=== PATIENT | female | born 1965 | race Caucasian/White ===

== ENCOUNTER 2020-10-06 09:10 | Outpatient (REF) | payer BC, SELFPAY ==
--- NOTE | 2020-10-06 09:15 | MM_ITS ---
EXAMINATION: MM SCREENING DIGITAL BREAST TOMOSYNTHESIS, BILATERAL CLINICAL INFORMATION: Screening. Asymptomatic. The lifetime risk of breast cancer based on the Tyrer-Cuzick Model is 7%. COMPARISON: Mammography: 06/26/2018, 06/14/2016 TECHNIQUE: Digital breast tomosynthesis is performed in both the craniocaudal and mediolateral oblique views along with computer-aided detection (CAD). Synthesized 2D images are generated from the tomosynthesis. FINDINGS: There are scattered areas of fibroglandular density (ACR BI-RADS breast composition Category b). There are no significant masses, abnormal calcifications, or other abnormalities. Axillary nodes are stable. The skin contours are smooth. MM/MM tomosynthesis screening BI IMPRESSION: No significant changes from prior exams. ASSESSMENT: BI-RADS 1: Negative RECOMMENDATION: Routine annual mammography screening. This patient's information was entered into a reminder system with a target due date for their next mammogram.
== END 2020-10-06 09:11 | disposition home or self-care (01) ==
LOC: HO.MAMMO 09:10
PROVIDERS: PCP Internal Medicine; Visit Provider Internal Medicine
DX: Z12.31 Encounter for screening mammogram for malignant neoplasm of breast (principal)
CPT/HCPCS: 77063; 77067

== ENCOUNTER 2022-10-22 07:29 | Outpatient (REF) | payer OTHER, SELFPAY ==
[2022-10-22 11:18] LABS: MANUAL DIFF FLAG NO
[2022-10-22 11:31] LABS: Basophils Percent Auto 0.5 % (0-2); Eosinophils Absolute Auto 0.3 X10*3/uL (0.0-0.4); Eosinophils Percent Auto 3.4 % (0-4); Hematocrit 43.5 % (37.0-47.0); Hemoglobin 14.8 g/dl (12.0-16.0); Imm Gran Abs Auto 0.02 X10*3/uL (0.00-0.03); Imm Gran Pct Auto 0.3 % (0.0-0.4); Lymphocytes Absolute Auto 2.3 X10*3/uL (1.2-4.9); Lymphocytes Percent Auto 29.2 % (20-40); Mean Corpuscular Hemoglobin 29.7 pg (27.0-33.0); Mean Corpuscular Volume 87.3 fL (80.0-98.0); Mean Platelet Volume 9.9 fL (9.4-12.3); Monocytes Absolute Auto 0.6 X10*3/uL (0.1-1.2); Monocytes Percent Auto 7.9 % (2-11); Neutrophils Absolute Auto 4.7 x10*3/uL (2.0-8.3); Neutrophils Percent Auto 58.7 % (45-73); Platelet Count 326 X10*3/uL (160-400); Red Blood Count 4.98 X10*6/uL (4.20-5.50); Red Cell Distribution Width 13.4 % (11.0-16.0)
[2022-10-22 12:17] LABS: Alanine Aminotransferase 56 U/L (0-31); Albumin Level 4.2 g/dL (3.5-5.0); Anion Gap 17 (12-20); Aspartate Amino Transferase 28 U/L (5-31); Bilirubin Total 0.6 mg/dL (0.0-1.0); Blood Urea Nitrogen 14 mg/dL (9-16); Calcium 9.2 mg/dL (8.4-10.2); Carbon Dioxide 22 mmol/L (22-29); Chloride 107 mmol/L (96-108); Cholesterol 229 mg/dL; Estimated Glomerular Filt Rate > 60; Glucose Fasting 104 mg/dL (60-99); HDL Cholesterol 41 mg/dL; LDL Cholesterol Calculated 160 mg/dl; Potassium 4.3 mmol/L (3.3-5.1); Sodium 142 mmol/L (135-145); TSH reflex Free T4 1.31 uIU/mL (0.32-4.0); Total Protein 6.9 g/dL (6.5-8.0); Triglycerides 142 mg/dL; Vitamin D 25-OH Total 20.7 ng/mL (>30)
[2022-10-22 12:31] LABS: Alkaline Phosphatase 87 U/L (39-117)
[2022-10-22 12:33] LABS: Folate 7.9 ng/mL (> or = 4.0); Vitamin B12 1350 pg/mL (200-900)
== END 2022-10-22 07:30 | disposition home or self-care (01) ==
LOC: HO.HMGCLDS 07:29
PROVIDERS: PCP Internal Medicine; Visit Provider Internal Medicine
DX: F41.9 Anxiety disorder, unspecified (principal); E78.5 Hyperlipidemia, unspecified
CPT/HCPCS: 36415; 80053; 80061; 82306; 82607; 82746; 84443; 85025

== ENCOUNTER 2022-11-10 08:22 | Outpatient (REF) | payer OTHER, SELFPAY ==
--- NOTE | ~2022-11-10 | US_ITS ---
EXAMINATION: US ABDOMEN COMPLETE CLINICAL INFORMATION: Other specified abnormal findings of blood chemistry. COMPARISON: CT abdomen and pelvis with contrast 05/10/2015. TECHNIQUE: Real-time imaging of the abdominal viscera. FINDINGS: PANCREAS: Normal. ABDOMINAL AORTA: The proximal, mid, and distal segments are normal in caliber. INFERIOR VENA CAVA: Visualized portions are normal. LIVER: The liver is normal in size. The liver contour is normal. There is diffuse increased liver parenchymal echogenicity, consistent with hepatic steatosis. No focal hepatic lesion. There is no intrahepatic biliary duct dilatation seen. GALLBLADDER: Cholelithiasis without evidence of acute cholecystitis. COMMON BILE DUCT: Normal in caliber measuring 0.3 cm in diameter. RIGHT KIDNEY: Normal. No hydronephrosis. No renal calculi or focal parenchymal lesions. The kidney measures 10.8 cm in maximum dimension. LEFT KIDNEY: Normal. No hydronephrosis. No renal calculi or focal parenchymal lesions. The kidney measures 11.4 cm in maximum dimension. SPLEEN: Normal. The spleen measures 9.0 cm in maximum dimension. FREE FLUID: None. US/US abdomen complete IMPRESSION: Fatty liver. Cholelithiasis.
== END 2022-11-10 08:23 | disposition home or self-care (01) ==
LOC: HO.HMGCX 08:22
PROVIDERS: PCP Internal Medicine; Visit Provider Internal Medicine
DX: R79.89 Other specified abnormal findings of blood chemistry (principal)
CPT/HCPCS: 76700

== ENCOUNTER 2022-11-17 13:08 | Outpatient (REF) | payer OTHER, SELFPAY ==
--- NOTE | ~2022-11-17 | MM_ITS ---
EXAMINATION: MM SCREENING DIGITAL BREAST TOMOSYNTHESIS, BILATERAL CLINICAL INFORMATION: Screening. Asymptomatic. The lifetime risk of breast cancer based on the Tyrer-Cuzick Model is 7%. COMPARISON: Mammography: 10/06/2020, 06/26/2018, 06/14/2016 TECHNIQUE: Digital breast tomosynthesis is performed in both the craniocaudal and mediolateral oblique views along with computer-aided detection (CAD). Synthesized 2D images are generated from the tomosynthesis. FINDINGS: There are scattered areas of fibroglandular density (ACR BI-RADS breast composition Category b). There are no significant masses, abnormal calcifications, or other abnormalities. Parenchymal pattern is similar to prior studies. There is no developing density or architectural abnormality. The axilla and skin contours are unremarkable. No significant changes. MM/MM tomosynthesis screening BI IMPRESSION: No mammographic evidence of malignancy. ASSESSMENT: BI-RADS 1: Negative RECOMMENDATION: Routine annual mammography screening. This patient's information was entered into a reminder system with a target due date for their next mammogram.
== END 2022-11-17 13:09 | disposition home or self-care (01) ==
LOC: HO.MAMMO 13:08
PROVIDERS: PCP Internal Medicine; Visit Provider Internal Medicine
DX: Z12.31 Encounter for screening mammogram for malignant neoplasm of breast (principal)
CPT/HCPCS: 77063; 77067

== ENCOUNTER 2022-12-11 09:25 | Outpatient (REF) | payer OTHER, SELFPAY ==
[2022-12-11 11:51] LABS: Alanine Aminotransferase 36 U/L (0-31); Albumin Level 4.3 g/dL (3.5-5.0); Alkaline Phosphatase 79 U/L (39-117); Anion Gap 14 (12-20); Aspartate Amino Transferase 20 U/L (5-31); Bilirubin Total 0.5 mg/dL (0.0-1.0); Blood Urea Nitrogen 13 mg/dL (9-16); Calcium 8.9 mg/dL (8.4-10.2); Carbon Dioxide 23 mmol/L (22-29); Chloride 109 mmol/L (96-108); Cholesterol 174 mg/dL; Estimated Glomerular Filt Rate > 60; Glucose Fasting 104 mg/dL (60-99); HDL Cholesterol 53 mg/dL; LDL Cholesterol Calculated 104 mg/dl; Potassium 4.4 mmol/L (3.3-5.1); Sodium 142 mmol/L (135-145); Total Protein 6.8 g/dL (6.5-8.0); Triglycerides 89 mg/dL
[2022-12-11 12:24] LABS: TSH reflex Free T4 1.06 uIU/mL (0.32-4.0); Vitamin D 25-OH Total 44.6 ng/mL (>30)
[2022-12-12 08:18] LABS: HBS Num1 0.33 mIU/mL (0-7.99); HBc Num1 0.09 S/CO (0.00-0.79); HBsAGNum1 0.35 S/CO (0.00-0.99); Hepatitis B Core Antibody Nonreactive (Nonreactive); Hepatitis B Surface Antigen Negative (Negative); ~HepC Num1 0.11 S/CO (0.00-0.79); ~Hepatitis B Surface Antibody NONREACTIVE (Nonreactive); ~Hepatitis C Antibody Nonreactive (Nonreactive)
== END 2022-12-11 09:26 | disposition home or self-care (01) ==
LOC: HO.HMGCLDS 09:25
PROVIDERS: PCP Internal Medicine; Visit Provider Internal Medicine
DX: E78.5 Hyperlipidemia, unspecified (principal); F41.9 Anxiety disorder, unspecified; E55.9 Vitamin D deficiency, unspecified; R79.89 Other specified abnormal findings of blood chemistry
CPT/HCPCS: 36415; 80053; 80061; 82306; 84443; 86704; 86706; 86803; 87340

== ENCOUNTER 2023-07-24 11:35 | Outpatient (AMB) | payer OTHER, SELFPAY ==
[2023-07-24 11:42] VITALS: BP 124/68; PULSE 90; O2SAT 95
--- NOTE | 2023-07-24 11:42 | A.OFFPC_ITS ---
Vital Signs 07/24/23 11:42 Height 5 ft BMI Reason not done Patient refused/unable BP 124/68 Blood Pressure Location Lt brachial Position Sitting Pulse 90 Pulse Source Pulse Oximeter Pulse Oximetry (%) 95 Oxygen Delivery Method Room Air Intake Visit Reasons: Cough, Wheezing Intake Note: Pt is here today for a sick visit. Pt c/o wheezing and cough since Thursday. Allergies Sulfa (Sulfonamide Antibiotics) [SULFA (SULFONAMIDE ANTIBIOTICS)] Allergy (Unknown, Verified 07/24/23 11:45) HIVES sulfamethoxazole [From BACTRIM] Allergy (Unknown, Verified 07/24/23 11:45) HIVES trimethoprim [From BACTRIM] Allergy (Unknown, Verified 07/24/23 11:45) HIVES sulfa Allergy (Unknown, Uncoded 07/24/23 11:45) rash Medication List - Last Reconciled 07/24/23 by Vane Quick MD albuterol sulfate 90 mcg/actuation 2 puffs inhalation Q6H PRN buspirone 15 mg (3 x 5 mg) PO BID doxycycline hyclate 100 mg PO BID escitalopram oxalate 30 mg (1.5 x 20 mg) PO DAILY lorazepam 0.5 mg PO DAILY PRN prednisone 40 mg (2 x 20 mg) PO DAILY rosuvastatin 20 mg PO DAILY Tobacco use date assessed: 07/24/23 Dental Screening Dental Screen Date: 07/24/23 Did you have a dental visit in the last 12 months?: Yes Did you have a dental problem in the last 6 months where you did not have access to dental care?: No Was dental information given to patient?: Patient has dentist HPI Cough, Wheezing HPI Details Pt presents c/o productive cough, wheezing, sinus congestion postnasal drip low-grade fever for 1 week. Patient denies shortness of breath or pleurisy PFSH Medical History Annual physical exam Anxiety Hx of screening mammography Hyperlipemia Normal pelvic exam Surgical History Hx of colonoscopy Social History Housing: House Patient Tobacco Use Status: Never used Tobacco e-Cigarette/Vaping Use: Never Used Second Hand Smoke Exposure: No service: No Current occupational status: employed Current occupation: [employer] Current occupational exposures/hazards: No Cognitive needs: No Hearing needs: No Vision needs: Yes Questionnaire Thrive Questionnaire Date Thrive assessed: 10/21/22 KEVIN-7 AMB Questionnaire KEVIN-7 Date KEVIN - 7 assessed: 10/21/22 Source: Developed by Drs. Candelario Willett, Krys Castrejon, Cruz Yancey and colleagues, with an educational lauren from [employer]. Review of Systems Const All systems reviewed & are unremarkable except as noted in HPI and below Reports no additional complaints Eyes Reports no additional complaints ENT Reports no additional complaints Card Reports no additional complaints Resp Reports no additional complaints GI Reports no additional complaints Reports no additional complaints Physical exam (Primary Care) Vital Signs: Last Vital Signs Pulse 90 07/24/23 11:42 BP 124/68 07/24/23 11:42 Pulse Ox 95 07/24/23 11:42 Oxygen Delivery Method Room Air 07/24/23 11:42 Tobacco/Smoking Status: Tobacco use Status Tobacco use date assessed 07/24/23 07/24/23 11:47 Patient Tobacco Use Status Never used Tobacco 07/24/23 11:47 e-Cigarette/Vaping Use Never Used 07/24/23 11:47 Thrive Assessment: Date of Thrive Assessment Date Thrive assessed 10/21/22 07/24/23 11:47 Const General: no acute distress HENMT Face and sinus: Yes sinus tenderness Throat: Yes posterior oropharynx abnormal and Yes postnasal drainage Neck Neck: Yes no lymphadenopathy and Yes supple Resp Effort & Inspection: normal respiratory effort Auscultation: wheezes Cardio Rhythm: regular rhythm Heart sounds: S1 normal heart sound present and S2 normal heart sound present Assessment and Plan Assessment & Plan (1) URI (upper respiratory infection): Code(s): J06.9 - Acute upper respiratory infection, unspecified Plan: SINUSITIS AND BRONCHITIS DOXYCYCLINE FOR 7 DAYS, PREDNISONE 40 MG FOR 3 DAYS AND ALBUTEROL NEEDED UP PRESCRIBED AND SUPPORTIVE CARE DISCUSSED WITH THE PATIENT Medications: New albuterol sulfate 90 mcg/actuation 2 puffs inhalation Q6H PRN 6.7 grams 0RF shortness of breath or wheezing doxycycline hyclate 100 mg PO BID 14 tabs 0RF prednisone 40 mg (2 x 20 mg) PO DAILY 6 tabs 0RF Coding Level of Care Code Est Pt Level 3 (75069) Diagnoses URI (upper respiratory infection) J06.9
== END 2023-07-24 12:17 | disposition home or self-care (01) ==
PROVIDERS: PCP Internal Medicine; Visit Provider Internal Medicine
DX: J06.9 Acute upper respiratory infection, unspecified (principal)
CPT/HCPCS: 99213

== ENCOUNTER 2023-08-24 07:47 | Outpatient (AMB) | payer OTHER, SELFPAY ==
--- NOTE | 2023-08-24 08:13 | MHC.PC.OV ---
Vital Signs 08/24/23 08:14 Height 5 ft BMI Reason not done Patient refused/unable BP 110/68 Blood Pressure Location Rt brachial Position Sitting Pulse 87 Pulse Source Pulse Oximeter Pulse Oximetry (%) 95 Oxygen Delivery Method Room Air Intake Visit Reasons: 6m follow up Intake Note: Pt is here today for 6 months follow up visit. Allergies Sulfa (Sulfonamide Antibiotics) [SULFA (SULFONAMIDE ANTIBIOTICS)] Allergy (Unknown, Verified 08/24/23 08:15) HIVES sulfamethoxazole [From BACTRIM] Allergy (Unknown, Verified 08/24/23 08:15) HIVES trimethoprim [From BACTRIM] Allergy (Unknown, Verified 08/24/23 08:15) HIVES sulfa Allergy (Unknown, Uncoded 08/24/23 08:15) rash Medication List - Last Reconciled 08/24/23 by Vane Quick MD albuterol sulfate 90 mcg/actuation 2 puffs inhalation Q6H PRN buspirone 15 mg PO BID escitalopram oxalate 30 mg (1.5 x 20 mg) PO DAILY lorazepam 0.5 mg PO DAILY PRN rosuvastatin 20 mg PO DAILY Tobacco use date assessed: 08/24/23 HPI 6m follow up HPI Details Pt presents for f/u anxiety and hyperlipid, stable on meds. PFSH Medical History Normal pelvic exam Hx of screening mammography Annual physical exam Hyperlipemia Anxiety Surgical History Hx of colonoscopy Housing: House Patient Tobacco Use Status: Never used Tobacco e-Cigarette/Vaping Use: Never Used Second Hand Smoke Exposure: No service: No Current occupational status: employed Current occupation: [employer] Current occupational exposures/hazards: No Cognitive needs: No Hearing needs: No Vision needs: Yes Questionnaire Thrive Questionnaire Date Thrive assessed: 10/21/22 KEVIN-7 AMB Questionnaire KEVIN-7 Date KEVIN - 7 assessed: 10/21/22 Source: Developed by Drs. Candelario Willett, Krys Castrejon, Cruz Yancey and colleagues, with an educational lauren from [employer]. Review of Systems Const All systems reviewed & are unremarkable except as noted in HPI and below Reports no additional complaints Eyes Reports no additional complaints ENT Reports no additional complaints Card Reports no additional complaints Resp Reports no additional complaints GI Reports no additional complaints Reports no additional complaints Physical exam (Primary Care) Vital Signs: Last Vital Signs Pulse 87 08/24/23 08:14 BP 110/68 08/24/23 08:14 Pulse Ox 95 08/24/23 08:14 Oxygen Delivery Method Room Air 08/24/23 08:14 Tobacco/Smoking Status: Tobacco use Status Tobacco use date assessed 08/24/23 08/24/23 08:18 Patient Tobacco Use Status Never used Tobacco 08/24/23 08:15 e-Cigarette/Vaping Use Never Used 08/24/23 08:15 Thrive Assessment: Date of Thrive Assessment Date Thrive assessed 10/21/22 08/24/23 08:15 Const General: no acute distress HENMT Face and sinus: Yes normal facial exam Throat: Yes posterior oropharynx normal Eyes General: appearance normal, both eyes and all related structures Neck Neck: Yes no lymphadenopathy and Yes supple Resp Effort & Inspection: normal respiratory effort Auscultation: clear to auscultation bilaterally Cardio Rhythm: regular rhythm Heart sounds: S1 normal heart sound present and S2 normal heart sound present GI Inspection: Yes normal to inspection Palpation (GI): Soft to palpation Percussion: Yes normal to percussion Auscultation: normal bowel sounds Office Procedures Flu Questionnaire Does the patient have a severe egg allergy?: No Does the patient have severe life threatening allergies?: No Does the patient have a fever or illness today?: No Has the patient ever had Guillain-P[place]mouth Syndrome?: No Has the patient ever had any past reaction to a flu shot?: No Immunizations flu vacc [id number] 6mos up(PF) 60 mcg(15 mcgx4)/0.5 mL IM syringe Performing Provider: Vane Quick MD Performing Location: [facility] Administered by: JULIANA Brody on 08/24/23 08:57 Dose Route Admin Location Dispensed Lot Number Expiration Date NDC Coding Manager 0.5 mL IM Right Deltoid 0.5 mL [id number] 03/27/24 [id number] [employer] [place] VIS Given Date VIS Provided VIS Publication Date 08/24/23 Single Vaccine 21 Eligibility Eligibility Date Funding Source Not [facility] Eligible 08/24/23 Private Assessment and Plan Assessment & Plan (1) Anxiety: Code(s): F41.9 - Anxiety disorder, unspecified Plan: cont meds (2) Hyperlipemia: Code(s): E78.5 - Hyperlipidemia, unspecified Plan: cont statin, PE in 6 months (3) Elevated LFTs: Comment: Fatty liver on CT of the abdomen 2015, US fatty liver cholelithiasis without cholecystitis 11/20 Code(s): R79.89 - Other specified abnormal findings of blood chemistry (4) Vitamin D deficiency: Code(s): E55.9 - Vitamin D deficiency, unspecified (5) Annual physical exam: Code(s): Z00.00 - Encounter for general adult medical examination without abnormal findings Orders: Orders Comprehensive [place]. Panel Fast 6 Months E55.9 - Vitamin D deficiency, unspecified, E78.5 - Hyperlipidemia, unspecified, R79.89 - Other specified abnormal findings of blood chemistry, Z00.00 - Encounter for general adult medical examination without abnormal findings Complete Blood Count Auto Diff 6 Months E55.9 - Vitamin D deficiency, unspecified, E78.5 - Hyperlipidemia, unspecified, R79.89 - Other specified abnormal findings of blood chemistry, Z00.00 - Encounter for general adult medical examination without abnormal findings Lipid Panel 6 Months E55.9 - Vitamin D deficiency, unspecified, E78.5 - Hyperlipidemia, unspecified, R79.89 - Other specified abnormal findings of blood chemistry, Z00.00 - Encounter for general adult medical examination without abnormal findings Influenza [id number] Immunization Today Z23 - Encounter for immunization Vitamin B12 and Folate 6 Months E55.9 - Vitamin D deficiency, unspecified, E78.5 - Hyperlipidemia, unspecified, R79.89 - Other specified abnormal findings of blood chemistry, Z00.00 - Encounter for general adult medical examination without abnormal findings Vitamin D 25-OH Total 6 Months E55.9 - Vitamin D deficiency, unspecified, E78.5 - Hyperlipidemia, unspecified, R79.89 - Other specified abnormal findings of blood chemistry, Z00.00 - Encounter for general adult medical examination without abnormal findings Coding Level of Care Code Est Pt Level 4 (00988) Diagnoses Anxiety F41.9 Hyperlipemia E78.5 Elevated LFTs R79.89 Vitamin D deficiency E55.9 Annual physical exam Z00.00
[2023-08-24 08:14] VITALS: BP 110/68; PULSE 87; O2SAT 95
== END 2023-08-24 09:02 | disposition home or self-care (01) ==
PROVIDERS: Visit Provider Internal Medicine
DX: F41.9 Anxiety disorder, unspecified (principal); E78.5 Hyperlipidemia, unspecified; R79.89 Other specified abnormal findings of blood chemistry; E55.9 Vitamin D deficiency, unspecified; Z00.00 Encounter for general adult medical examination without abnormal findings; Z23 Encounter for immunization
CPT/HCPCS: 90471; 90686; 99214

== ENCOUNTER 2023-11-28 07:57 | Outpatient (REF) | payer OTHER, SELFPAY | END 2023-11-28 07:58 | disposition home or self-care (01) | LOC: HO.MAMMO 07:57 | PROVIDERS: PCP Internal Medicine; Visit Provider Internal Medicine | DX: Z12.31 Encounter for screening mammogram for malignant neoplasm of breast (principal) | CPT/HCPCS: 77063; 77067 ==

== ENCOUNTER → 2023-11-28 08:15 | Outpatient (BNV) | payer OTHER, SELFPAY | PROVIDERS: PCP Internal Medicine; Visit Provider Radiology Diagnostic Radiology | DX: Z12.31 Encounter for screening mammogram for malignant neoplasm of breast (principal) | CPT/HCPCS: 77063; 77067 ==

== ENCOUNTER 2023-12-16 09:40 | Outpatient (AMB) | payer OTHER, SELFPAY ==
[2023-12-16 10:02] VITALS: BP 100/60; PULSE 88; O2SAT 95
--- NOTE | 2023-12-16 10:02 | A.OFFPC_ITS ---
Vital Signs 12/16/23 10:02 Height 5 ft BMI Reason not done Patient refused/unable BP 100/60 Blood Pressure Location Rt brachial Position Sitting Pulse 88 Pulse Source Pulse Oximeter Pulse Oximetry (%) 95 Oxygen Delivery Method Room Air Intake Visit Reasons: left arm pain after fall Intake Note: Pt is here today for a sick visit. Pt c/o fall when walking a dog. Pt states that she has been having L arm pain. Allergies Sulfa (Sulfonamide Antibiotics) [SULFA (SULFONAMIDE ANTIBIOTICS)] Allergy (Unknown, Verified 12/16/23 10:05) HIVES sulfamethoxazole [From BACTRIM] Allergy (Unknown, Verified 12/16/23 10:05) HIVES trimethoprim [From BACTRIM] Allergy (Unknown, Verified 12/16/23 10:05) HIVES sulfa Allergy (Unknown, Uncoded 12/16/23 10:05) rash Medication List - Last Reconciled 12/16/23 by Vane Quick MD albuterol sulfate 90 mcg/actuation 2 puffs inhalation Q6H PRN buspirone 15 mg PO BID escitalopram oxalate 30 mg (1.5 x 20 mg) PO DAILY lorazepam 0.5 mg PO DAILY PRN meloxicam 15 mg PO DAILY rosuvastatin 20 mg PO DAILY Tobacco use date assessed: 12/16/23 Dental Screening Dental Screen Date: 12/16/23 Did you have a dental visit in the last 12 months?: Yes Did you have a dental problem in the last 6 months where you did not have access to dental care?: No Was dental information given to patient?: Patient has dentist HPI left arm pain after fall 2 HPI Details Pt fell down on left shoulder after a dog pulled on the leash that she was holding in the left hand. Patient reports pain in her left shorter worse with the movement. She denies any weakness or numbness in the left upper extremity. Patient denies any head injury. [facility] Medical History Normal pelvic exam Hx of screening mammography Annual physical exam Hyperlipemia Anxiety Surgical History Hx of colonoscopy Social History Housing: House Patient Tobacco Use Status: Never used Tobacco e-Cigarette/Vaping Use: Never Used Second Hand Smoke Exposure: No service: No Current occupational status: employed 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 Current occupational exposures/hazards: No Cognitive needs: No Hearing needs: No Vision needs: Yes Questionnaire PHQ-9 Over the last 2 weeks, how often have you been bothered by any of the following problems? 1. Little interest or pleasure in doing things: not at all 2. Feeling down, depressed, or hopeless: not at all 3. Trouble falling or staying asleep, or sleeping too much: several days 4. Feeling tired or having little energy: several days 5. Poor appetite or overeating: several days 6. Feeling bad about yourself - or that you are a failure or have let yourself or your family down: not at all 7. Trouble concentrating on things, such as reading the newspaper or watching television: not at all 8. Moving or speaking so slowly that other people could have noticed. Or the opposite - being so fidgety or restless that you have been moving around a lot more than usual: not at all 9. Thoughts that you would be better off or of hurting yourself in some way: not at all Total score: 3 Depression Screening Interpretation: Negative Depression Screening Done: Yes Source: Developed by Drs. Candelario Willett, Krys Castrejon, Cruz Yancey and colleagues, with an educational lauren from [employer]. Thrive Questionnaire Date Thrive assessed: 12/16/23 I am a: Patient What is your living situation today?: I have a steady place to live Within the past 12 months, did the food you bought not last and you didn't have the money to get more?: Never true Within the past 12 months, did you worry whether your food would run out before you got money to buy more?: Never true Do you have trouble paying for medicines?: No Do you have trouble getting transportation to medical appointments?: No Do you have trouble paying your heating and electricity bill?: No Do you have trouble taking care of your child, family member or friend?: No Do you have trouble with day-to-day activities such as bathing, preparing meals, shopping, managing finances, etc.?: No Are you currently unemployed and looking for a job?: No Are you interested in more education?: No Please select the resources that you would like help with: None Currently or been in a relationship where the following occur: no concerns reported THRIVE Score: 0 AUDIT C Alcohol Use Questionnaire (AUDIT-C) 1. How often do you have a drink containing alcohol?: Monthly or less 2. How many drinks containing alcohol do you have on a typical day when you are drinking?: 1 or 2 3. How often do you have six or more drinks on one occasion?: Never Total Score: 1 KEVIN-7 AMB Questionnaire KEVIN-7 Date KEVIN - 7 assessed: 12/16/23 Feeling nervous, anxious, or on edge: 1 = Several days Not being able to stop or control worryin = Not at all Worrying too much about different things: 1 = Several days Trouble relaxin = Several days Being so restless that it is hard to sit still: 1 = Several days Becoming easily annoyed or irritable: 0 = Not at all Feeling afraid as if something awful might happen: 0 = Not at all Total KEVIN-7 score (0-4 normal; 5-9 mild; 10-14 moderate; 15-21 severe): 4 Source: Developed by Drs. Candelario Willett, Krys Castrejon, Cruz Yancey and colleagues, with an educational lauren from [employer]. Review of Systems Const All systems reviewed & are unremarkable except as noted in HPI and below Reports no additional complaints Eyes Reports no additional complaints ENT Reports no additional complaints Card Reports no additional complaints GI Reports no additional complaints Reports no additional complaints Physical exam (Primary Care) Vital Signs: Last Vital Signs Pulse 88 12/16/23 10:02 BP 100/60 12/16/23 10:02 Pulse Ox 95 12/16/23 10:02 Oxygen Delivery Method Room Air 12/16/23 10:02 Tobacco/Smoking Status: Tobacco use Status Tobacco use date assessed 12/16/23 12/16/23 10:07 Patient Tobacco Use Status Never used Tobacco 12/16/23 10:07 e-Cigarette/Vaping Use Never Used 12/16/23 10:07 PHQ-9: PHQ-9 Score PHQ-9: Total score 3 12/16/23 10:07 Depression Screening Interpretation: Negative Thrive Assessment: Date of Thrive Assessment Date Thrive assessed 12/16/23 12/16/23 10:07 Currently or been in a relationship where the following occur: no concerns reported Const General: no acute distress HENMT Head: Yes normal to inspection Neck Neck: Yes supple Resp Effort & Inspection: normal respiratory effort Auscultation: clear to auscultation bilaterally Cardio Rhythm: regular rhythm Heart sounds: S1 normal heart sound present and S2 normal heart sound present Extrem Other: Left shoulder Anterior and lateral aspect tenderness, no soft tissue swelling or hematoma, there is a decreased range of motion with abduction and adduction and external rotation Assessment and Plan Assessment & Plan (1) Injury of shoulder: Code(s): S49.90XA - Unspecified injury of shoulder and upper arm, unspecified arm, initial encounter Plan: Check x-ray of left shoulder, meloxicam is prescribed, patient was advised to rest and use ice for 24 hours and then slowly increase range of motion exercises Orders: Orders XR shoulder LT min 2V Today S49.90XA - Unspecified injury of shoulder and upper arm, unspecified arm, initial encounter Medications: New meloxicam 15 mg PO DAILY 10 tabs 0RF Coding Level of Care Code Est Pt Level 3 (74518) Diagnoses Injury of shoulder S49.90XA
== END 2023-12-16 10:43 | disposition home or self-care (01) ==
PROVIDERS: PCP Internal Medicine; Visit Provider Internal Medicine
DX: S49.90XA Unspecified injury of shoulder and upper arm, unspecified arm, initial encounter (principal)
CPT/HCPCS: 99213

== ENCOUNTER 2023-12-16 10:42 | Outpatient (REF) | payer OTHER, SELFPAY ==
--- NOTE | ~2023-12-16 | XR_ITS ---
EXAMINATION: XR SHOULDER, LEFT CLINICAL INFORMATION: Injury COMPARISON: None available. TECHNIQUE: Three views of the left shoulder. FINDINGS: No acute visible fracture or dislocation. Degenerative changes of the glenohumeral and acromioclavicular joint. Joint space alignment otherwise maintained. Soft tissues are unremarkable. Visualized portions of the chest are unremarkable. XR/XR shoulder LT min 2V IMPRESSION: 1. No acute visible fracture or dislocation. 2. Degenerative changes of the glenohumeral and acromioclavicular joint.
== END 2023-12-16 10:43 | disposition home or self-care (01) ==
LOC: HO.HMGCX 10:42
PROVIDERS: PCP Internal Medicine; Visit Provider Internal Medicine
DX: S49.92XD Unspecified injury of left shoulder and upper arm, subsequent encounter (principal)
CPT/HCPCS: 73030

== ENCOUNTER 2024-02-16 07:28 | Outpatient (AMB) | payer OTHER, SELFPAY ==
[2024-02-16 07:39] VITALS: BP 110/70; PULSE 85; O2SAT 94
--- NOTE | 2024-02-16 07:39 | A.OFFPC_ITS ---
Vital Signs 02/16/24 07:39 BMI Reason not done Patient refused/unable BP 110/70 Blood Pressure Location Rt brachial Position Sitting Pulse 85 Pulse Source Pulse Oximeter Pulse Oximetry (%) 94 Oxygen Delivery Method Room Air Intake Visit Reasons: PE Intake Note: Pt is here today for her PE Allergies Sulfa (Sulfonamide Antibiotics) [SULFA (SULFONAMIDE ANTIBIOTICS)] Allergy (Unknown, Verified 02/16/24 07:39) HIVES sulfamethoxazole [From BACTRIM] Allergy (Unknown, Verified 02/16/24 07:39) HIVES trimethoprim [From BACTRIM] Allergy (Unknown, Verified 02/16/24 07:39) HIVES sulfa Allergy (Unknown, Uncoded 02/16/24 07:39) rash Medication List - Last Reconciled 02/16/24 by Vane Quick MD albuterol sulfate 90 mcg/actuation 2 puffs inhalation Q6H PRN buspirone 15 mg PO BID escitalopram oxalate 30 mg (1.5 x 20 mg) PO DAILY lorazepam 0.5 mg PO DAILY PRN rosuvastatin 20 mg PO DAILY Tobacco use date assessed: 02/16/24 Dental Screening Dental Screen Date: 02/16/24 Did you have a dental visit in the last 12 months?: Yes Did you have a dental problem in the last 6 months where you did not have access to dental care?: Yes Was dental information given to patient?: Patient has dentist HPI PE HPI Details Patient presents for physical. Patient complain of persistent daily left shoulder pain worse when trying to reach overhead or lift despite doing range of motion regular exercises. 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 Candelario Willett, Krys Castrejon, Cruz curtis nd colleagues, with an educational lauren from [employer]. Review of Systems Const All systems reviewed & are unremarkable except as noted in HPI and below Reports no additional complaints Eyes Reports no additional complaints ENT Reports no additional complaints Card Reports no additional complaints Resp Reports no additional complaints GI Reports no additional complaints Reports no additional complaints Physical exam (Primary Care) Vital Signs: Last Vital Signs Pulse 85 02/16/24 07:39 BP 110/70 02/16/24 07:39 Pulse Ox 94 02/16/24 07:39 Oxygen Delivery Method Room Air 02/16/24 07:39 Tobacco/Smoking Status: Tobacco use Status Tobacco use date assessed 02/16/24 02/16/24 07:41 Patient Tobacco Use Status Never used Tobacco 02/16/24 07:41 e-Cigarette/Vaping Use Never Used 02/16/24 07:41 Thrive Assessment: Date of Thrive Assessment Date Thrive assessed 12/16/23 02/16/24 07:41 Const General: no acute distress HENMT Head: Yes normal to inspection Face and sinus: Yes normal facial exam Mouth: Normal oral and palatal mucosa present Throat: Yes posterior oropharynx normal Eyes General: appearance normal, both eyes and all related structures Neck Neck: Yes no lymphadenopathy and Yes supple Resp Effort & Inspection: normal respiratory effort Auscultation: clear to auscultation bilaterally Cardio Rhythm: regular rhythm Heart sounds: S1 normal heart sound present and S2 normal heart sound present GI Inspection: Yes normal to inspection Palpation (GI): Soft to palpation Percussion: Yes normal to percussion Auscultation: normal bowel sounds Extrem Other: Significantly decreased range of motion left shoulder, no joint tenderness Assessment and Plan Assessment & Plan (1) Left shoulder pain: Code(s): M25.512 - Pain in left shoulder Plan: Referred to physical therapy (2) Normal pelvic exam: Comment: 2021, s/p hysterectomy Code(s): Z01.419 - Encounter for gynecological examination (general) (routine) without abnormal findings (3) Hyperlipemia: Code(s): E78.5 - Hyperlipidemia, unspecified Plan: Continue low-cholesterol diet (4) Annual physical exam: Code(s): Z00.00 - Encounter for general adult medical examination without abnormal findings Plan: Well-balanced diet regular exercise weight loss discussed with the patient she will have a fasting blood work today. Patient is up-to-date with mammogram colonoscopy Orders: Orders Comprehensive [place]. Panel Fast Today E78.5 - Hyperlipidemia, unspecified, Z00.00 - Encounter for general adult medical examination without abnormal f indings Vitamin D 25-OH Total Today E78.5 - Hyperlipidemia, unspecified, Z00.00 - Encounter for general adult medical examination without abnormal findings PT Evaluation and Treatment Today M25.512 - Pain in left shoulder Complete Blood Count Auto Diff Today E78.5 - Hyperlipidemia, unspecified, Z00.00 - Encounter for general adult medical examination without abnormal findings Lipid Panel Today E78.5 - Hyperlipidemia, unspecified, Z00.00 - Encounter for general adult medical examination without abnormal findings Hemoglobin A1c Today E78.5 - Hyperlipidemia, unspecified, Z00.00 - Encounter for general adult medical examination without abnormal findings Coding Level of Care Code Est Pt Prev Care 40-64y(91477) Diagnoses Left shoulder pain M25.512 Normal pelvic exam Z01.419 Hyperlipemia E78.5 Annual physical exam Z00.00
== END 2024-02-16 08:33 | disposition home or self-care (01) ==
PROVIDERS: Visit Provider Internal Medicine
DX: M25.512 Pain in left shoulder (principal); Z01.419 Encounter for gynecological examination (general) (routine) without abnormal findings; E78.5 Hyperlipidemia, unspecified; Z00.00 Encounter for general adult medical examination without abnormal findings
CPT/HCPCS: 99396

== ENCOUNTER 2024-06-20 10:31 | Outpatient (REF) | payer OTHER, SELFPAY ==
[2024-06-20 13:29] LABS: MANUAL DIFF FLAG NO
[2024-06-20 13:35] LABS: Basophils Percent Auto 0.5 % (0-2); Eosinophils Absolute Auto 0.3 X10*3/uL (0.0-0.4); Eosinophils Percent Auto 3.7 % (0-4); Hematocrit 42.6 % (37.0-47.0); Hemoglobin 14.5 g/dl (12.0-16.0); Imm Gran Abs Auto 0.03 X10*3/uL (0.00-0.03); Imm Gran Pct Auto 0.4 % (0.0-0.4); Lymphocytes Percent Auto 25.1 % (20-40); Mean Corpuscular Hemoglobin 30.2 pg (27.0-33.0); Mean Corpuscular Volume 88.8 fL (80.0-98.0); Mean Platelet Volume 9.6 fL (9.4-12.3); Monocytes Absolute Auto 0.6 X10*3/uL (0.1-1.2); Monocytes Percent Auto 7.9 % (2-11); Neutrophils Absolute Auto 4.9 x10*3/uL (2.0-8.3); Neutrophils Percent Auto 62.4 % (45-73); Platelet Count 277 X10*3/uL (160-400); Red Cell Distribution Width 14.2 % (11.0-16.0); White Blood Count 7.8 X10*3/uL (4.8-10.8)
[2024-06-20 13:54] LABS: Estimated Average Glucose 117 mg/dL; Hemoglobin A1c % 5.7 % (<6.0)
[2024-06-20 14:12] LABS: Alanine Aminotransferase 29 U/L (0-31); Albumin Level 4.1 g/dL (3.5-5.0); Alkaline Phosphatase 82 U/L (39-117); Anion Gap 11 (12-20); Aspartate Amino Transferase 22 U/L (5-31); Bilirubin Total 0.5 mg/dL (0.0-1.0); Blood Urea Nitrogen 10 mg/dL (9-16); Calcium 8.8 mg/dL (8.4-10.2); Carbon Dioxide 24 mmol/L (22-29); Chloride 112 mmol/L (96-108); Cholesterol 170 mg/dL (<200); Estimated Glomerular Filt Rate > 60; Glucose Fasting 109 mg/dL (60-99); HDL Cholesterol 54 mg/dL (>40); LDL Cholesterol Calculated 96 mg/dL (<100); Potassium 4.3 mmol/L (3.3-5.1); Sodium 143 mmol/L (135-145); Triglycerides 101 mg/dL (<150)
[2024-06-20 14:30] LABS: Vitamin D 25-OH Total 51.9 ng/mL (>30)
== END 2024-06-20 10:32 | disposition home or self-care (01) ==
LOC: HO.HMGCLDS 10:31
PROVIDERS: PCP Internal Medicine; Visit Provider Internal Medicine
DX: Z00.00 Encounter for general adult medical examination without abnormal findings (principal); E78.5 Hyperlipidemia, unspecified; Z13.1 Encounter for screening for diabetes mellitus
CPT/HCPCS: 36415; 80053; 80061; 82306; 83036; 85025

== ENCOUNTER 2024-07-18 08:00 | Outpatient (RCR) | payer OTHER, SELFPAY ==
--- NOTE | 2024-04-29 08:36 | MHC.PT.EP ---
[facility] [place] Office [place] Office [place] Office [address] Luther Burroughs [address] [phone] F: [phone] F: [phone] F: [phone] F: [phone] Physical Therapy Plan of Care Date of Evaluation: 04/29/24 Date of Surgery: n/a Diagnosis: Pain in L shoulder Assessment: Patient is a 58 year old female presenting to PT with complaints of pain in her L shoulder. Pt reports onset of pain began in November due to falling on her arm. She presents today with impairments in pain, ROM, shoulder strength, posture. 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 Clinical presentation today is most consistent with signs and sx associated with L shoulder pain and pt will benefit from skilled PT 2 week x 4 weeks to address the following problems and impairments noted upon evaluation: pain, ROM, shoulder strength, posture. These problems limit the patient with the following functional activities: reaching, lifting, work, ADLs. The prescribed treatment plan of care is medically necessary. Co-morbidities of none were identified and taken into considerations of plan of care. Pt was educated on HEP, role of PT, prognosis, POC. Frequency and Duration: The patient will be seen 2 x week x 4 weeks Short Term Goals: Pt will demonstrate symmetrical ROM in 2 weeks. Pt will demonstrate improved L shoulder MMT strength by 1/3 grade in 2 weeks. Pt will be more aware of her posture at work in 2 weeks. 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 Pt will demonstrate ability to reach and lift with min to no pain in 4 weeks for return to PLOF. Pt will demonstrate ability to reach behind her back in 4 weeks with min to no pain for improved tolerance to dressing. Treatment Plan: Modalities to reduce pain, spasms and effusion. Manual therapy to restore motion and function. Therapeutic exercise to improve strength and flexibility. Neuromuscular re-education for posture and balance. Therapeutic activities to return to functional activities of daily living. Electronically signed by: Suly Dorado, PT, DPT, ATC Please sign and return to therapist. Thank you for your referral.
--- NOTE | 2024-07-18 09:08 | MHC.PT.DC ---
[facility] [place] Office [place] Office [place] Office [address] Luther Burroughs [address] [phone] F: [phone] F: [phone] F: [phone] F: [phone] Physical Therapy Discharge Report Diagnosis: Pain in L shoulder Date of Surgery: n/a Date of Evaluation: 04/29/24 Date of Discharge: 07/18/24 Treatments to Date: 8 Cancellations to Date: 4 No Shows to Date: 0 Discharge Status: Improved Function Independent with HEP Recommend MD Follow-up Discharge Summary: 07/18/2024: Pt pain has improved since start of care however ROM and strength has not made much progress. She has been compliant with her HEP and is independent in her exercises. At this time max benefits of PT have been provided and skilled PT is no longer indicated. Pt to be d/c to HEP and we discussed that if her limitations continue then recommend following up with MD. She is in agreement with d/c today. Electronically signed by: Suly Dorado, PT, DPT, ATC Please sign and return to therapist. Thank you for your referral.
== END 2024-07-18 09:08 | disposition home or self-care (01) ==
LOC: HO.PTCHIC 08:00
PROVIDERS: PCP Internal Medicine; Visit Provider Internal Medicine
DX: M25.512 Pain in left shoulder (principal)
CPT/HCPCS: 97110; 97140; 97161

== ENCOUNTER 2024-12-22 09:05 | Outpatient (REF) | payer OTHER, SELFPAY | END 2024-12-22 09:06 | disposition home or self-care (01) | LOC: HO.MAMMO 09:05 | PROVIDERS: PCP Internal Medicine; Visit Provider Internal Medicine | DX: Z12.31 Encounter for screening mammogram for malignant neoplasm of breast (principal) | CPT/HCPCS: 77063; 77067 ==

== ENCOUNTER → 2024-12-22 09:15 | Outpatient (BNV) | payer OTHER, SELFPAY | PROVIDERS: PCP Internal Medicine; Visit Provider Internal Medicine | DX: Z12.31 Encounter for screening mammogram for malignant neoplasm of breast (principal) | CPT/HCPCS: 77063; 77067 ==

== ENCOUNTER 2025-02-08 13:45 | Outpatient (AMB) | payer OTHER, SELFPAY ==
--- NOTE | 2025-02-08 14:07 | AM.OFFWIN_ITS ---
Intake Vital Signs 02/08/25 14:12 Height 5 ft BMI Reason not done Patient refused/unable BP 112/70 Blood Pressure Location Rt brachial Position Sitting Pulse 86 Pulse Source Pulse Oximeter Temp 97.7 F Temp Source Oral Pulse Oximetry (%) 95 Oxygen Delivery Method Room Air Intake Visit Reasons: EP cough, sore throat Patient Tobacco Use Status: Never used Tobacco Allergies Sulfa (Sulfonamide Antibiotics) [SULFA (SULFONAMIDE ANTIBIOTICS)] Allergy (Unknown, Verified 02/08/25 14:12) HIVES sulfamethoxazole [From BACTRIM] Allergy (Unknown, Verified 02/08/25 14:12) HIVES trimethoprim [From BACTRIM] Allergy (Unknown, Verified 02/08/25 14:12) HIVES sulfa Allergy (Unknown, Uncoded 02/16/24 07:39) rash Do you need a note to return to daycare/school/sports/work: No HPI HPI Comments History of Present Illness Details Patient is a 59yo F who presents with sore throat Thursday onset Started as a tickle and has turned into cough without phlegm Feels like mucus needs to come up per patient Wanted to be checked out Has some L eye redness/swelling She had some drainage from L eye and crusting in the morning only Advil without relief 04/06; worse with coughing and swallowing Does not use albuterol and has not had to use it No associated fever or chills PFSH Medical History (Updated 02/08/25 @ 14:20 by Minnie Gale PA-C) Normal pelvic exam Hx of screening mammography Annual physical exam Hyperlipemia Anxiety Surgical History Hx of colonoscopy Social History Housing: House Patient Tobacco Use Status: Never used Tobacco e-Cigarette/Vaping Use: Never Used Second Hand Smoke Exposure: No service: No Current occupational status: employed Current occupation: [employer] Current occupational exposures/hazards: No Cognitive needs: No Hearing needs: No Vision needs: Yes Review of Systems Const Denies chills and Denies fever(s) ENT Denies otalgia (minimal L side but not currently), Reports nasal congestion, Reports sore throat and Denies throat swelling Card Denies chest pain and Denies dyspnea Resp Denies change in phlegm color, Reports cough and Denies dyspnea Musc Denies myalgias Aller/Immun Denies throat swelling Physical Exam Vital Signs: Last Vital Signs Temp 97.7 F 02/08/25 14:12 Pulse 86 02/08/25 14:12 BP 112/70 02/08/25 14:12 Pulse Ox 95 02/08/25 14:12 Oxygen Delivery Method Room Air 02/08/25 14:12 General: Non-toxic, NAD. Speaking full sentences. Skin: Warm dry throughout Eye: EOMI HENT: Airway patent. Uvula midline. slight pharyngeal erythema without exudates or edema. 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 Bilateral canals clear. TM non-erythematous, non-bulging. No TM perforation or hemotympanum noted. Respiratory: CTA bilaterally. No wheezes, rales or rhonchi. Dry cough on exam Cardiac: RRR. No murmur MSK: Full ROM extremities. Neurology: Alert. No aphasia or facial droop. Gait without abnormality Psych: Good mood and affect Assessment & Plan Assessment & Plan (1) Acute cough: Code(s): R05.1 - Acute cough Plan: Patient seen and evaluated. Rapid strep: negative Lungs CTA and no OM or OE on exam Symptoms consistent with allergic rhinitis Advised start daily antihistamine OTC and use Tessalon for cough prn We discussed showering at night, keeping windows closed and pillow case clean Patient gave verbal understanding and had no additional questions or concerns at time of discharge All questions answered Medications: New benzonatate 200 mg PO BID-TID PRN 14 caps 0RF cough Coding Level of Care Code Est Pt Level 3 (96650) Diagnoses Acute cough R05.1
[2025-02-08 14:12] VITALS: BP 112/70; PULSE 86; TEMP 36.5; O2SAT 95
== END 2025-02-08 14:44 | disposition home or self-care (01) ==
PROVIDERS: PCP Internal Medicine; Visit Provider Physician Assistant
DX: R05.1 Acute cough (principal)

== ENCOUNTER → 2025-02-08 13:45 | Outpatient (BNVA) | payer OTHER, SELFPAY | PROVIDERS: PCP Internal Medicine; Visit Provider Physician Assistant ==

== ENCOUNTER 2025-03-15 09:31 | Outpatient (REF) | payer OTHER, SELFPAY ==
[2025-03-15 13:23] LABS: MANUAL DIFF FLAG NO
[2025-03-15 13:27] LABS: Basophils Percent Auto 0.4 % (0-2); Eosinophils Absolute Auto 0.3 X10*3/uL (0.0-0.4); Eosinophils Percent Auto 3.9 % (0-4); Hemoglobin 14.8 g/dl (12.0-16.0); Imm Gran Abs Auto 0.01 X10*3/uL (0.00-0.03); Imm Gran Pct Auto 0.1 % (0.0-0.4); Lymphocytes Absolute Auto 1.9 X10*3/uL (1.2-4.9); Lymphocytes Percent Auto 26.9 % (20-40); Mean Corpuscular HGB Conc 33.6 g/dl (31.0-35.0); Mean Corpuscular Hemoglobin 29.8 pg (27.0-33.0); Mean Corpuscular Volume 88.7 fL (80.0-98.0); Mean Platelet Volume 10.1 fL (9.4-12.3); Monocytes Absolute Auto 0.6 X10*3/uL (0.1-1.2); Monocytes Percent Auto 8.6 % (2-11); Neutrophils Absolute Auto 4.2 x10*3/uL (2.0-8.3); Neutrophils Percent Auto 60.1 % (45-73); Platelet Count 267 X10*3/uL (160-400); Red Blood Count 4.96 X10*6/uL (4.20-5.50); Red Cell Distribution Width 14.1 % (11.0-16.0)
[2025-03-15 13:50] LABS: Alanine Aminotransferase 47 U/L (0-31); Albumin Level 4.6 g/dL (3.5-5.0); Alkaline Phosphatase 82 U/L (39-117); Anion Gap 13 (12-20); Aspartate Amino Transferase 37 U/L (5-31); Bilirubin Total 0.4 mg/dL (0.0-1.0); Blood Urea Nitrogen 16 mg/dL (9-16); Calcium 9.3 mg/dL (8.4-10.2); Carbon Dioxide 24 mmol/L (22-29); Chloride 109 mmol/L (96-108); Cholesterol 148 mg/dL (<200); Estimated Glomerular Filt Rate > 60; Glucose Fasting 109 mg/dL (60-99); HDL Cholesterol 51 mg/dL (>40); LDL Cholesterol Calculated 82 mg/dL (<100); Potassium 4.5 mmol/L (3.3-5.1); Sodium 141 mmol/L (135-145); Total Protein 7.1 g/dL (6.5-8.0); Triglycerides 75 mg/dL (<150)
[2025-03-15 14:06] LABS: TSH reflex Free T4 1.04 uIU/mL (0.32-4.0); Vitamin D 25-OH Total 69.2 ng/mL (>30)
== END 2025-03-15 09:32 | disposition home or self-care (01) ==
LOC: HO.HMGCLDS 09:31
PROVIDERS: PCP Internal Medicine; Visit Provider Internal Medicine
DX: Z00.00 Encounter for general adult medical examination without abnormal findings (principal)
CPT/HCPCS: 36415; 80053; 80061; 82306; 84443; 85025

== ENCOUNTER 2025-03-17 08:14 | Outpatient (AMB) | payer OTHER, SELFPAY ==
[2025-03-17 08:18] VITALS: BP 110/70; PULSE 96; RESP 18; TEMP 36.8; O2SAT 96; BMI 44.7
--- NOTE | 2025-03-17 08:18 | A.OFFPC_ITS ---
Vital Signs 03/17/25 08:18 Height 5 ft Weight 229 lb BMI 44.7 BP 110/70 Blood Pressure Location Lt brachial Position Sitting Respiration 18 Pulse 96 Pulse Source Pulse Oximeter Temp 98.2 F Temp Source Oral Pulse Oximetry (%) 96 Oxygen Delivery Method Room Air Intake Visit Reasons: PE - see comments Intake Note: Pt is here today for PE. Allergies Sulfa (Sulfonamide Antibiotics) (SULFA (SULFONAMIDE ANTIBIOTICS)) Allergy (Unknown, Verified 03/17/25 08:19) HIVES sulfamethoxazole (From BACTRIM) Allergy (Unknown, Verified 03/17/25 08:19) HIVES trimethoprim (From BACTRIM) Allergy (Unknown, Verified 03/17/25 08:19) HIVES sulfa Allergy (Unknown, Uncoded 03/17/25 08:19) rash Tobacco use date assessed: 03/17/25 Dental Screening Dental Screen Date: 03/17/25 Did you have a dental visit in the last 12 months?: Yes Did you have a dental problem in the last 6 months where you did not have access to dental care?: No Was dental information given to patient?: Patient has dentist HPI PE - see comments HPI Details PATIENT PRESENTS FOR PHYSICAL. Patient has been decreasing caloric intake increasing physical activity for over 6 months unable to lose weight. 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 1. Little interest or pleasure in doing things: not at all 2. Feeling down, depressed, or hopeless: not at all 3. Trouble falling or staying asleep, or sleeping too much: not at all 4. Feeling tired or having little energy: not at all 5. Poor appetite or overeating: not at all 6. Feeling bad about yourself - or that you are a failure or have let yourself or your family down: not at all 7. Trouble concentrating on things, such as reading the newspaper or watching television: not at all 8. Moving or speaking so slowly that other people could have noticed. Or the opposite - being so fidgety or restless that you have been moving around a lot more than usual: not at all 9. Thoughts that you would be better off or of hurting yourself in some way: not at all Total score: 0 Depression Screening Interpretation: Negative Depression Screening Done: Yes 99275 - PHQ-9 Billing: Yes Source: Developed by Drs. Candelario Willett, Krys Castrejon, Cruz Yancey and colleagues, with an educational lauren from [employer]. Thrive Questionnaire Date Thrive assessed: 03/17/25 I am a: Patient What is your living situation today?: I have a steady place to live Within the past 12 months, did the food you bought not last and you didn't have the money to get more?: Never true Within the past 12 months, did you worry whether your food would run out before you got money to buy more?: Never true Do you have trouble paying for medicines?: No Do you have trouble getting transportation to medical appointments?: No Do you have trouble paying your heating and electricity bill?: No Do you have trouble taking care of your child, family member or friend?: No Do you have trouble with day-to-day activities such as bathing, preparing meals, shopping, managing finances, etc.?: No Are you currently unemployed and looking for a job?: No Are you interested in more education?: No Please select the resources that you would like help with: None Currently or been in a relationship where the following occur: No concerns reported THRIVE Score: 0 AUDIT C Alcohol Use Questionnaire (AUDIT-C) 1. How often do you have a drink containing alcohol?: Monthly or less 2. How many drinks containing alcohol do you have on a typical day when you are drinking?: 1 or 2 3. How often do you have six or more drinks on one occasion?: Never Total Score: 1 KEVIN-7 AMB Questionnaire KEVIN-7 Date KEVIN - 7 assessed: 03/17/25 Feeling nervous, anxious, or on edge: 1 = Several days Not being able to stop or control worryin = Not at all Worrying too much about different things: 0 = Not at all Trouble relaxin = Not at all Being so restless that it is hard to sit still: 0 = Not at all Becoming easily annoyed or irritable: 0 = Not at all Feeling afraid as if something awful might happen: 0 = Not at all Total KEVIN-7 score (0-4 normal; 5-9 mild; 10-14 moderate; 15-21 severe): 1 Source: Developed by Drs. Candelario Willett, Krys Castrejon, Cruz Yancey and colleagues, with an educational lauren from [employer]. KEVIN-7 Assessment Billing KEVIN-7 Assessment Tool: KEVIN-7 Assessment 59286 Review of Systems Const All systems reviewed & are unremarkable except as noted in HPI and below Eyes Reports no additional complaints ENT Reports no additional complaints Card Reports no additional complaints Resp Reports no additional complaints GI Reports no additional complaints Reports no additional complaints Physical exam (Primary Care) Vital Signs: Last Vital Signs Temp 98.2 F 03/17/25 08:18 Pulse 96 03/17/25 08:18 Resp 18 03/17/25 08:18 BP 110/70 03/17/25 08:18 Pulse Ox 96 03/17/25 08:18 Oxygen Delivery Method Room Air 03/17/25 08:18 BMI result Body Mass Index 44.7 Tobacco/Smoking Status: Tobacco use Status Tobacco use date assessed 03/17/25 03/17/25 08:25 Patient Tobacco Use Status Never used Tobacco 03/17/25 08:25 e-Cigarette/Vaping Use Never Used 03/17/25 08:25 PHQ-9: PHQ-9 Score PHQ-9: Total score 0 03/17/25 09:08 Depression Screening Interpretation: Negative Thrive Assessment: Date of Thrive Assessment Date Thrive assessed 03/17/25 03/17/25 08:25 Currently or been in a relationship where the following occur: No concerns reported Const General: no acute distress HENMT Head: Yes normal to inspection Face and sinus: Yes normal facial exam Mouth: Normal oral and palatal mucosa present Throat: Yes posterior oropharynx normal Eyes General: appearance normal, both eyes and all related structures Neck Neck: Yes no lymphadenopathy and Yes supple Resp Effort & Inspection: normal respiratory effort Auscultation: clear to auscultation bilaterally Cardio Rhythm: regular rhythm Heart sounds: S1 normal heart sound present and S2 normal heart sound present GI Inspection: Yes normal to inspection Palpation (GI): Soft to palpation Percussion: Yes normal to percussion Auscultation: normal bowel sounds Coding Level of Care Code Est Pt Prev Care 40-64y(25417) Diagnoses Annual physical exam Z00.00 Anxiety F41.9 Obesity, morbid, BMI 40.0-49.9 E66.01 Additional Codes KEVIN-7 Assessment Billing - KEVIN-7 Assessment Tool: KEVIN-7 Assessment 09359 ([id number]) PHQ-9 - 62888 - PHQ-9 Billing: Yes ([id number]) Assessment & Plan Assessment & Plan (1) Annual physical exam: Code(s): Z00.00 - Encounter for general adult medical examination without abnormal findings Category: Medical Plan: Well-balanced diet regular physical activity discussed with the patient, she is up-to-date with 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 She will check with her insurance coverage for GLP 1 agonist
== END 2025-03-17 09:10 | disposition home or self-care (01) ==
LOC: HO.HMCC 08:15
PROVIDERS: PCP Internal Medicine; Visit Provider Internal Medicine
DX: Z00.00 Encounter for general adult medical examination without abnormal findings (principal); F41.9 Anxiety disorder, unspecified; E66.01 Morbid (severe) obesity due to excess calories; Z68.41 Body mass index [BMI] 40.0-44.9, adult

== ENCOUNTER → 2025-03-17 08:14 | Outpatient (BNVA) | payer OTHER, SELFPAY | PROVIDERS: PCP Internal Medicine; Visit Provider Internal Medicine | DX: Z00.00 Encounter for general adult medical examination without abnormal findings (principal); F41.9 Anxiety disorder, unspecified; E66.01 Morbid (severe) obesity due to excess calories; Z68.41 Body mass index [BMI] 40.0-44.9, adult; Z13.31 Encounter for screening for depression; Z13.30 Encounter for screening examination for mental health and behavioral disorders, unspecified | CPT/HCPCS: 96127 ==

== ENCOUNTER → 2025-06-02 07:40 | Outpatient (BNVA) | payer OTHER, SELFPAY | PROVIDERS: PCP Internal Medicine; Visit Provider Surgery | DX: Z00.8 Encounter for other general examination (principal) ==

== ENCOUNTER 2025-06-21 08:20 | Outpatient (AMB) | payer OTHER, SELFPAY ==
--- NOTE | 2025-06-21 08:26 | A.OFFVIS_ITS ---
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 BMI 44.7 Allergies Sulfa (Sulfonamide Antibiotics) (SULFA (SULFONAMIDE ANTIBIOTICS)) Allergy (Unknown, Verified 06/21/25 08:26) HIVES sulfamethoxazole (From BACTRIM) Allergy (Unknown, Verified 06/21/25 08:26) HIVES trimethoprim (From BACTRIM) Allergy (Unknown, Verified 06/21/25 08:26) HIVES sulfa Allergy (Unknown, Uncoded 06/21/25 08:26) rash Medication List - Last Reconciled 06/21/25 by Rc Hurtado MD buspirone 15 mg PO BID escitalopram oxalate 30 mg (1.5 x 20 mg) PO DAILY lorazepam 0.5 mg PO DAILY PRN rosuvastatin 20 mg PO DAILY HPI HPI TV [employer] 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 BMI 44.7: Details: Start time: 8.24am, End time: 9.09am ?I spent 40 minutes speaking with the patient on the phone plus an additional 5 minutes reviewing and updating records for a total of 45 minutes HPI Comments Details: Previous weight loss efforts: YAHAIRA Regan, exercise Wakes up: 6.30am, Sleeps: 11.30pm Breakfast: 9am (yogurt) Lunch: 12.30pm (salad with chicken) Dinner: 6.30pm (steak or chicken, rice, potatoes, vegetables) Snacks: occ at 4pm (cheese with crackers, fruit), 8pm (ice cream) Exercise: has a home treadmill with incline and calorie-tracking Beverages: Coffee: none, Tea: 1 cup/d black, Soda: none, Juice: a little cranberry juice, ETOH: rarely PFSH Medical History (Updated 06/21/25 @ 08:29 by Rc Hurtado MD) Depression Normal pelvic exam Hx of screening mammography Annual physical exam Hyperlipemia Anxiety Surgical History (Updated 06/21/25 @ 08:29 by Rc Hurtado MD) History of hysterectomy History of delivery Hx of colonoscopy Family History Father Hypertension Diabetes Mother Hypertension Social History Housing: House Patient Tobacco Use Status: Never used Tobacco e-Cigarette/Vaping Use: Never Used Second Hand Smoke Exposure: No service: No Current occupational status: employed 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 [employer] Current occupational exposures/hazards: No Cognitive needs: No Hearing needs: No Vision needs: Yes Telehealth Telehealth Telehealth Platform: Telephone Location of provider rendering services: practice address Location of patient: address on file Patient Identification confirmed using: Name, : Yes Telehealth method: voice only Patient verbally consented to treatment: Yes Patient verbally consented to billing insurance company: Yes Patient informed of any privacy concerns related to visit: Yes Minutes spent on Phone/Video with Pt.: 45 Assessment & Plan Assessment & Plan (1) Obesity, morbid, BMI 40.0-49.9: Code(s): E66.01 - Morbid (severe) obesity due to excess calories Category: Medical Plan: 1. As we discussed, based on your present BMI you are approximately 120lbs overweight. In my opinion, for any weight loss strategy to be successful should have a high probability to help you lose at least 100lbs out of 120lbs of the extra weight you carry. We discussed in detail the available therapeutic options: 1) our lifestyle intervention program that has an average weight loss of 10% in 3 months.?Some patients continue it for longer and have lost over 50lbs but this is not common. Our lifestyle program can be provided by me. I will provide you with a link to use the sara if you choose to do so. We use protein shakes and protein bars to replace some of the meals of the day and cover your appetite better. We will decide together the exact combination. 2) Weight loss medications: these can be used in conjunction with our lifestyle program or you may choose to use them without following a lifestyle program from my program but your own. As we discussed, your insurance requires you to do the lifestyle program for 3 months before they approve the medications. The medication I use more often is called Zepbound and is one shot per week. My office will do the authorizations and we will train you how to use it properly. We also discussed that you can self pay for the first 3 months and the cost is $249 for the first month and $499 for any other month thereafter. These payments go to the drug company directly and not to us. 3) We also discussed about the lap sleeve gastrectomy. In my opinion this is the best option to solve your problem based on your situation and should be used in conjunction with the two previous options. A good strategy to make this decision to proceed with surgery, is to set some goals with the lifestyle intervention and medication options: If you don't lose at least 10lbs the first 6 weeks after starting the program or at least 10% in 3 months. ?I emphasized the importance of close follow-up, adherence to instructions and good communication. The surgery does not replace the need to change your li festlyle which is the cause of the obesity problem. The surgery provides the motivation to try again to change your lifestyle, it reduces the appetite and make the transition to a better lifestyle easier and doubles the amount of weight you would lose compared to doing the lifestyle change without the surgery. You will need to be on a liquid diet with protein shakes for 2 weeks before surgery to maximize weight loss and boost your nutritional status to recover better from surgery and also for the first two weeks after surgery to let the stomach heal before we introduce other foods. After the first 2 weeks we will introduce protein bars and soft foods like scrambled eggs, cottage cheese and yogurt and after the 6th week will introduce meat, fish and cooked vegetables in small amounts. Over time you should be able to eat everything in small amounts. Side effects like nausea, vomiting, heartburn or abdominal pain are not common in the practice unless you are not following in the practice. This operation requires lifetime commitment to following in our practice and communication with me. You will much less weight and experience side effects if you don?t communicate or not following in the practice. Complications are rare and in our practice is about 1/10 of the national average. 4) You have decided to proceed with the lifestyle program and the Zepbound. Start the Zepbound when you get your body composition scale once a week. We discussed the potential side effects of Wegovy such as nausea, vomiting, abdominal pain, diarrhea and constipation and you will need to contact me if any of these symptoms occur or for any other new symptom you may experience 5) Nutritional counseling. Start with one premade PREMIER protein (buy at [employer] or [employer]) shake (mix 4oz of Premier mixed with 4oz low fat unsweetened almond milk each) at 8am-10am, one protein bar (Fit Crunch protein bar, buy at [employer], or [employer]) at 11am-1pm, another premade PREMIER protein shake (mix 4oz of Premier mixed with 4oz low fat unsweetened almond milk each) at 2pm-4pm, dinner at 5pm (8 forks of protein and 8 forks of salad/vegetables), another Fit Crunch protein bar at 7pm-9pm and another HALF protein bar at 10pm-11pm So you do 2 protein shakes, 2.5 protein bars and one meal per day. Meal to include lean meat (beef, fish, pork, turkey, chicken), or sinhala yogurt, or egg whites, or beans with a salad with olive oil and fruits (berries, pears, apples, kiwi). Avoid salt, breads, potatoes, rice, pasta, desserts 6. Each shake would be drunk slowly, like coffee in a period of 2 hours. 7. Cut each bar in 4 pieces and eat each piece in 30min ?to make each bar last 2 hours. 8. I emphasized the importance of measuring accurately the food portion and measure it when serving the food in plate 9. The meal portions include 8 full-size forks of meat and 8 full-size forks of salad. You always eat the meat portion but you can replace up to 4 forks for salad/vegetables with rice, potatoes or pasta, or a fruit ?if you like. The less you do it the better weight loss will be. 10. One full-size fork is what it can be scooped on the fork without falling aside and not what can be bit with the fork. Use regular forks like those you find in a typical restaurant. 11.? Please buy the body composition scale we discussed and send me weight measurements as soon as possible and then once a week. Always include your diet and exercise plan. 12. Start treadmill with an incline of 2.0 and speed of 3.0. Increase incline by 1 every 3 min to a max incline of 8.0, stay 3min at 8.0 and then return to 2.0 and repeat same steps until calorie goal is met. Goal is to burn 2000 calories per week on exercise, which means either 300 calories daily. 13. Goal is to lose at least 1.5-2lbs per week 14. Goal to lose at least 10% of your weight, which is about 29lbs. Minimum weight goal: 200lbs 15. Please follow the diet plan exactly without any change. If you don't like something about the plan or you feel hungry you need to communicate with me so I can help you revise the plan. You should not change the plan yourself Medications: New tirzepatide (weight loss) (Zepbound) for 4 weeks 2.5 mg (0.5 mL) subcut QWEEK 2 mL 0RF E66.01 - Morbid (severe) obesity due to excess calories
[2025-06-21 08:45] VITALS: BMI 44.7
== END 2025-06-21 09:10 | disposition home or self-care (01) ==
LOC: HO.HBS 08:20
PROVIDERS: PCP Internal Medicine; Visit Provider Surgery
DX: E66.01 Morbid (severe) obesity due to excess calories (principal)
CPT/HCPCS: 99204